=== PATIENT | female | born 1960 | race Caucasian/White ===

== ENCOUNTER 2023-03-22 11:39 | Inpatient (IN) ==
[2023-03-22] MEDS ORDERED: cefTRIAXone SODIUM 2,000 MG/70 ML BAG IV STA (12:18)
--- NOTE | 2023-03-22 12:23 | Emergency Department Note ---
Impression & Plan Sepsis, Leukopenia, Acute hyponatremia, Transaminitis, Acute Lyme disease ED Provider Note NAME: TAYLOR MARRUFO AGE: 62 SEX: F : 1960 ARRIVES VIA: Walk-In INFORMANT: Patient, ED PROVIDER(S): Stanley Min DO CHIEF COMPLAINT: fever HPI: Patient is a 62-year-old female who presents ER with a past medical history of hypertension, hyperlipidemia, UTI for right del cid wound. This occurred at the end of February at low-dose. She was seen by her PCP and placed on Keflex. She was seen by Dr. Veloz several days ago and placed on Keflex and Bactrim. She has had persistent fevers of 10 2-1 04 with this. She was seen and evaluated and referred in today for further admission and work-up. She notes the redness has been improving slightly. She still having persistent fevers. She denies any headache or change in vision. No chest pain or shortness of breath. No dysuria urgency or frequency. Admits to nausea and some intermittent vomiting. No other exacerbating or remitting factors. PAST MEDICAL HISTORY:See Below PAST SURGICAL HISTORY:See Below FAMILY HISTORY:See Below SOCIAL HISTORY:See Below HOME MEDICATIONS:See Below ALLERGIES:See Below VITALS:See Below PHYSICAL EXAMINATION: GENERAL: Sitting up in bed, alert, well appearing, well nourished, no distress, non-toxic EYE EXAM: normal conjunctiva. PERRL and EOM's grossly intact. OROPHARYNX: no exudate, no erythema, lips, buccal mucosa, and tongue normal and mucous membranes are moist NECK: supple, no nuchal rigidity, no adenopathy, non-tender LUNGS: Clear to auscultation. Normal chest wall mechanics HEART: no murmurs, S1 normal and S2 normal ABDOMEN: abdomen soft, non-tender, normo-active bowel sounds, no masses, no rebound or guarding. BACK: Back is symmetrical on inspection and there is no deformity, no midline tenderness, no CVA tenderness. SKIN: Wound on right del cid which is closed without any drainage. Small amount of fluctuance. Erythema on the inferior aspect of the wound tracking down to the heel. Skin is slightly warm. UPPER EXTREMITIES: upper extremities are grossly normal. LOWER EXTREMITIES: No pitting edema. NEURO EXAM: Normal sensorium, cranial nerves II-XII grossly intact, normal speech, no gross weakness of arms, no gross weakness of legs. MEDICAL DECISION MAKING: Patient is a 62-year-old female who presents the ER for above-stated complaint. IV was established blood work was obtained. External records were reviewed. Labs show mild leukopenia 3.1. There is mild hyponatremia at 125 with alfred mitten mild transaminitis. Troponin was negative. Pro-Elieser was normal. UA was clean. The setting of a fairly benign wound on the right del cid I did favor this most consistent with either Lyme or anaplasmosis. This testing was obtained and IgM was positive. Patient was covered with Rocephin initially I did Tylenol and doxycycline as well in case of anaplasmosis. X-ray was unremarkable and ultrasound did show a collection of fluid which I favor is likely hematoma. she was discussed with the hospitalist admitted for further work-up. Case was discussed with Dr. Vásquez for further evaluation management treatment. Triage Nursing notes reviewed. Limited review of prior medical records performed Vital Signs: reviewed and remarkable for febrile and tachycardic Differential diagnosis: Differential diagnosis includes etiologies such as sepsis, UTI, pneumonia, metabolic, electrolyte abnormalities, cardiac sources, intracerebral event, toxicologic, neurological, as well as others were entertained. ER treatment provided: See below Diagnostics interpreted by me include EKG and cardiac monitoring as listed below: -Cardiac Monitoring: An order was placed for continuous cardiac monitoring. The monitor shows a rate of 90 with sinus rhythm. -ECG: none -Laboratory studies:Interpreted by me as stated above in MDM and shown below. Imaging studies: Xrays: As interpreted by me: X-ray of the del cid 2 view shows no acute fracture CTs show: none Ultrasound shows a collection of fluid question hematoma versus abscess Consultation(s): As described in MDM Procedures:none Critical Care: None Past Med/Surg History Medical History Borderline diabetes Borderline high blood pressure Chronic UTI History of anesthesia reaction MOTHER WITH TRIPLE BYASS SURGERY TOOK A DAY AND A HALF TO GET HER AWAKE History of kidney infection X3 IN THE PAST YR - MOST RECENT - FEBRUARY OR MAR 2021 Hyperlipidemia Hypertension Weight gain 20 POUNDS OVER LAST 3 YRS Surgical History History of cataract extraction BOTH History of dilation and curettage History of foot surgery X2 (1 RIGHT, 1 LEFT) History of hysterectomy History of wisdom tooth extraction Family History Mother Diabetes Father Diabetes Sister Diabetes Other COPD (chronic obstructive pulmonary disease) Cancer Deep vein thrombosis Heart disease Pulmonary embolism Stroke Social History Smoking Status: Current every day smoker Tobacco Type: E-cigarettes / Vaping Cigarettes Per Day: VAPE EVERY DAY - ADVISED NPO; Second Hand Exposure: Yes; Do You Dip or Chew Tobacco: No; Hx Alcohol Use: Yes Alcohol type: wine Hx Substance Use: No Preferred Language: Citizen Of [place] Communication Ability: Effective Competitive Shopper Required: No Beliefs That Will Affect Care: None marital status: Current Living Situation: Alone current occupational status: employed current occupation: [employer] How many Children do You have: 0 Feels Safe at Home: Yes Childhood Exposure to Second-Hand Smoke: Yes Diet: regular caffeine: Yes Dental Care, Regularly: Yes Physical Activity Frequency: Daily Seatbelt Use: always Sunscreen Use: No Assistive Devices: Glasses Allergies Allergies Allergy/AdvReac Type Severity Reaction Status Date / Time Penicillins Allergy Intermediate HIVES AND Verified 03/22/23 14:52 SWELLING bupropion [From Zyban] AdvReac Severe MUSCULAR Verified 03/22/23 14:52 - SEE NOTES Home Meds Home Medications Medication Instructions Recorded Confirmed apple cider vinegar 600 mg capsule 600 mg PO DAILY 08/19/21 03/22/23 cyclosporine 0.05 % eye drops 1 drp ophthalmic (eye) BID 08/19/21 03/22/23 (Restasis MultiDose) flaxseed oil 1,000 mg capsule 1,000 mg PO DAILY 08/19/21 03/22/23 lactobacillus combination no.4 3 3,000 mmu cells PO DAILY 08/19/21 03/22/23 billion cell capsule (Probiotic) ascorbic acid (vitamin C) 500 mg 500 mg PO DAILY 09/04/21 03/22/23 tablet (Vitamin C) cholecalciferol (vitamin D3) 10 10 mcg PO DAILY 09/04/21 03/22/23 mcg (400 unit) capsule (Vitamin D3) cyanocobalamin (vitamin B-12) 1,000 mcg PO DAILY ##0 09/04/21 03/22/23 1,000 mcg tablet (Vitamin B-12) ibuprofen 200 mg tablet 600 mg PO DIRECTED PRN Pain 03/17/23 03/22/23 losartan 25 mg tablet (Cozaar) 25 mg PO HS 03/17/23 03/22/23 Previous Rx's Medication Instructions Recorded lorazepam 0.5 mg tablet (Ativan) 0.5 mg PO DAILY PRN anxiety, 03/01/23 trouble sleeping #14 tabs ondansetron HCl 4 mg tablet 4 mg PO Q8H PRN nausea and 03/18/23 vomiting #20 tabs Results & Data (ED) Vital Signs Vital Signs - 24 hr 03/22/23 12:04 03/22/23 13:15 03/22/23 13:00 Temperature 38.3 C H Temperature Source Oral Pulse Rate 93 H 83 Pulse Rate [Apical] Respiratory Rate 18 Respiratory Effort / Characteristics Non-Labored Spontaneous Respiratory Depth Normal Respiratory Pattern Regular Blood Pressure 115/67 Blood Pressure [Right Arm] Blood Pressure Mean 83 Blood Pressure Mean [Right Arm] Blood Pressure Position Sitting Pulse Oximetry 95 Oxygen Delivery Method Room Air Room Air Sepsis Recent Fever Within 48 Hours Yes Sepsis New/Unexplained Change in Mental Status No Sepsis Action Taken by Nursing No Action Required 03/22/23 17:28 Temperature Temperature Source Pulse Rate Pulse Rate [Apical] 81 Respiratory Rate 18 Respiratory Effort / Characteristics Respiratory Depth Respiratory Pattern Blood Pressure Blood Pressure [Right Arm] 100/60 Blood Pressure Mean Blood Pressure Mean [Right Arm] 73 Blood Pressure Position Pulse Oximetry 92 Oxygen Delivery Method Room Air Sepsis Recent Fever Within 48 Hours Sepsis New/Unexplained Change in Mental Status Sepsis Action Taken by Nursing Laboratory Data 03/22/23 12:27 03/22/23 12:27 Lab Results 03/22/23 03/22/23 03/22/23 Range/Units 12:23 12:27 12:27 WBC 3.18 L (4.8-10.8) K/ul RBC 4.26 (4.20-5.40) M/uL Hgb 13.5 (12.0-16.0) g/dl Hct 37.7 (37.0-47.0) % MCV 88.5 (80.0-100.0) fL MCH 31.7 (25.0-34.0) pg MCHC 35.8 (32.0-36.0) g/dL RDW Std Deviation 41.5 (36.4-46.3) fL RDW Coeff of Kristyn 12.8 (11.5-14.5) % Plt Count 167 (130-400) K/uL MPV 8.9 L (9.4-12.4) fL Immature Gran % (Auto) 4.4 % Neut % (Auto) 69.9 % Lymph % (Auto) 17.9 % Calhoun % (Auto) 4.7 % Eos % (Auto) 2.8 % Baso % (Auto) 0.3 % Neut # (Auto) 2.22 (1.40-6.50) K/uL Lymph # (Auto) 0.57 L (1.2-3.4) K/uL Calhoun # (Auto) 0.15 (0.11-0.59) K/uL Eos # (Auto) 0.09 (0-0.50) K/uL Baso # (Auto) 0.01 (0-0.2) K/uL Immature Gran # (Auto) 0.14 (0.01-0.20) K/uL Echinocytes 1+ PT (9.0-12.0) Seconds INR (0.9-1.1) APTT (21.0-31.0) Seconds PTT Ratio Sodium (136-145) mmol/L Potassium (3.5-5.1) mmol/L Chloride (98-107) mmol/L Carbon Dioxide (21-32) mmol/L Anion Gap (3-11) BUN (6-23) mg/dl Creatinine (0.6-1.2) mg/dl Est Cr Clr Drug Dosing ml/min Est GFR ( Amer) ml/min Est GFR (Non-Af Amer) ml/min BUN/Creatinine Ratio (10-20) Glucose (70-99(Fasting)) mg/dl Lactate 0.8 (0.4-2.0) mmol/L Calcium (8.6-10.3) mg/dl Magnesium (1.7-2.4) mg/dl Total Bilirubin (0.2-1.0) mg/dl AST (13-39) U/L ALT (7-52) U/L Alkaline Phosphatase (34-104) U/L Troponin I High Sens (0-14) pg/ml Total Protein (6.0-8.3) gm/dl Albumin (3.4-5.0) gm/dl Globulin (2.5-4.0) gm/dl Albumin/Globulin Ratio (0.9-2) Procalcitonin (0-0.5) ng/ml Urine Color Yellow Urine Appearance Clear (Clear) Urine pH 6.5 (4.5-7.5) Ur Specific Ambia 1.008 (1.000-1.030) Urine Protein Negative (Negative) Urine Glucose (UA) Negative (Negative) Urine Ketones Negative (Negative) Urine Blood Negative (Negative) Urine Nitrite Negative (Negative) Urine Bilirubin Negative (Negative) Urine Urobilinogen Negative (Negative) Ur Leukocyte Esterase Negative (Negative) Anaplasma Smear See Comment Lyme Disease IgG Ab (Negative) Lyme Disease IgM Ab (Negative) 03/22/23 03/22/23 03/22/23 Range/Units 12:27 12:27 12:27 WBC (4.8-10.8) K/ul RBC (4.20-5.40) M/uL Hgb (12.0-16.0) g/dl Hct (37.0-47.0) % MCV (80.0-100.0) fL MCH (25.0-34.0) pg MCHC (32.0-36.0) g/dL RDW Std Deviation (36.4-46.3) fL RDW Coeff of Kristyn (11.5-14.5) % Plt Count (130-400) K/uL MPV (9.4-12.4) fL Immature Gran % (Auto) % Neut % (Auto) % Lymph % (Auto) % Calhoun % (Auto) % Eos % (Auto) % Baso % (Auto) % Neut # (Auto) (1.40-6.50) K/uL Lymph # (Auto) (1.2-3.4) K/uL Calhoun # (Auto) (0.11-0.59) K/uL Eos # (Auto) (0-0.50) K/uL Baso # (Auto) (0-0.2) K/uL Immature Gran # (Auto) (0.01-0.20) K/uL Echinocytes PT 11.8 (9.0-12.0) Seconds INR 1.1 (0.9-1.1) APTT 33.9 H (21.0-31.0) Seconds PTT Ratio 1.2 Sodium 125 L (136-145) mmol/L Potassium 3.7 (3.5-5.1) mmol/L Chloride 95 L (98-107) mmol/L Carbon Dioxide 21 (21-32) mmol/L Anion Gap 9 (3-11) BUN 13 (6-23) mg/dl Creatinine 1.06 (0.6-1.2) mg/dl Est Cr Clr Drug Dosing 42.7 ml/min Est GFR ( Amer) 64.7 ml/min Est GFR (Non-Af Amer) 55.8 ml/min BUN/Creatinine Ratio 12.3 (10-20) Glucose 93 (70-99(Fasting)) mg/dl Lactate (0.4-2.0) mmol/L Calcium 8.4 L (8.6-10.3) mg/dl Magnesium 2.0 (1.7-2.4) mg/dl Total Bilirubin 0.4 (0.2-1.0) mg/dl AST 85 H (13-39) U/L ALT 72 H (7-52) U/L Alkaline Phosphatase 68 (34-104) U/L Troponin I High Sens 3.7 (0-14) pg/ml Total Protein 7.2 (6.0-8.3) gm/dl Albumin 4.2 (3.4-5.0) gm/dl Globulin 3.0 (2.5-4.0) gm/dl Albumin/Globulin Ratio 1.4 (0.9-2) Procalcitonin 0.23 (0-0.5) ng/ml Urine Color Urine Appearance (Clear) Urine pH (4.5-7.5) Ur Specific Ambia (1.000-1.030) Urine Protein (Negative) Urine Glucose (UA) (Negative) Urine Ketones (Negative) Urine Blood (Negative) Urine Nitrite (Negative) Urine Bilirubin (Negative) Urine Urobilinogen (Negative) Ur Leukocyte Esterase (Negative) Anaplasma Smear Lyme Disease IgG Ab (Negative) Lyme Disease IgM Ab (Negative) 03/22/23 Range/Units 12:27 WBC (4.8-10.8) K/ul RBC (4.20-5.40) M/uL Hgb (12.0-16.0) g/dl Hct (37.0-47.0) % MCV (80.0-100.0) fL MCH (25.0-34.0) pg MCHC (32.0-36.0) g/dL RDW Std Deviation (36.4-46.3) fL RDW Coeff of Kristyn (11.5-14.5) % Plt Count (130-400) K/uL MPV (9.4-12.4) fL Immature Gran % (Auto) % Neut % (Auto) % Lymph % (Auto) % Calhoun % (Auto) % Eos % (Auto) % Baso % (Auto) % Neut # (Auto) (1.40-6.50) K/uL Lymph # (Auto) (1.2-3.4) K/uL Calhoun # (Auto) (0.11-0.59) K/uL Eos # (Auto) (0-0.50) K/uL Baso # (Auto) (0-0.2) K/uL Immature Gran # (Auto) (0.01-0.20) K/uL Echinocytes PT (9.0-12.0) Seconds INR (0.9-1.1) APTT (21.0-31.0) Seconds PTT Ratio Sodium (136-145) mmol/L Potassium (3.5-5.1) mmol/L Chloride (98-107) mmol/L Carbon Dioxide (21-32) mmol/L Anion Gap (3-11) BUN (6-23) mg/dl Creatinine (0.6-1.2) mg/dl Est Cr Clr Drug Dosing ml/min Est GFR ( Amer) ml/min Est GFR (Non-Af Amer) ml/min BUN/Creatinine Ratio (10-20) Glucose (70-99(Fasting)) mg/dl Lactate (0.4-2.0) mmol/L Calcium (8.6-10.3) mg/dl Magnesium (1.7-2.4) mg/dl Total Bilirubin (0.2-1.0) mg/dl AST (13-39) U/L ALT (7-52) U/L Alkaline Phosphatase (34-104) U/L Troponin I High Sens (0-14) pg/ml Total Protein (6.0-8.3) gm/dl Albumin (3.4-5.0) gm/dl Globulin (2.5-4.0) gm/dl Albumin/Globulin Ratio (0.9-2) Procalcitonin (0-0.5) ng/ml Urine Color Urine Appearance (Clear) Urine pH (4.5-7.5) Ur Specific Ambia (1.000-1.030) Urine Protein (Negative) Urine Glucose (UA) (Negative) Urine Ketones (Negative) Urine Blood (Negative) Urine Nitrite (Negative) Urine Bilirubin (Negative) Urine Urobilinogen (Negative) Ur Leukocyte Esterase (Negative) Anaplasma Smear Lyme Disease IgG Ab Negative (Negative) Lyme Disease IgM Ab Positive A (Negative) Administered Medications Discontinued Medications Acetaminophen (Acetaminophen 325 Mg Tab) 650 mg PO NOW STA Stop: 03/22/23 12:10 Last Admin: 03/22/23 13:06 Dose: Not Given Documented By: JOSHUA Ceftriaxone Sodium (Rocephin) 2,000 mg in 70 mls @ 140 mls/hr IV NOW STA Stop: 03/22/23 12:47 Last Infusion: 03/22/23 13:44 Dose: 0 mls/hr Documented By: Admin: 03/22/23 13:01 Dose: 140 mls/hr Documented By: JOSHUA Vancomycin HCl 1,250 mg/ (Sodium Chloride) 525 mls @ 200 mls/hr IV NOW ONE Stop: 03/22/23 15:01 Last Admin: 03/22/23 13:47 Dose: 200 mls/hr Documented By: OUMOU Sodium Chloride (Nss 1000ml) 1,000 mls @ 999 mls/hr IV .Q1H1M ONE Stop: 03/22/23 14:46 Last Admin: 03/22/23 14:26 Dose: 999 mls/hr Documented By: OUMOU Doxycycline Hyclate 100 mg/ (Dextrose) 110 mls @ 50 mls/hr IV NOW STA Stop: 03/22/23 15:57 Last Admin: 03/22/23 14:26 Dose: 50 mls/hr Documented By: OUMOU Imaging Data Radiologist's Impression: Tibia/Fibula X-Ray 03/22/23 12:18 XR tibia fibula RT 2V CLINICAL HISTORY: Right lower leg pain. Assess for osteomyelitis. COMPARISON STUDY: Right foot 03/15/2023. FINDINGS: No fracture or dislocation within the right tibia or fibula. Plantar and posterior calcaneal spurs are noted. No bony destruction to suggest an osteomyelitis. Mild soft tissue swelling within the mid right lower leg. IMPRESSION: No evidence for osteomyelitis within the right lower leg. ACT 112: Negative or not required by law. Electronically signed by: Jaiden Bonilla M.D. 03/22/2023 1:18 PM Vascular Ultrasound 03/22/23 12:18 US extremity non-vascular ltd HISTORY: 62 years-old Female ? abscess diffuse soft tissue swelling of the right lower leg with possible abscess COMPARISON: Tibia and fibula radiographs of same day TECHNIQUE: Multiple real-time sonographic images of the right lower extremity soft tissues were obtained assessing grayscale appearance and color flow FINDINGS: The linear clinical concern in the right calf there is a complex wider than tall mixed echogenicity ovoid collection measuring approximately 3.7 x 0.7 x 2.6 cm with peripheral flow. Increased echogenicity of the subcutaneous tissues with subcutaneous edema. IMPRESSION: Complex 3.7 cm fluid collection of the right calf is suggestive of a hematoma versus abscess. ACT 112: Negative or not required by law. The above report was generated using voice recognition software. It may contain grammatical, syntax or spelling errors. Electronically signed by: Edvin Maradiaga M.D. 03/22/2023 3:56 PM Liver Ultrasound 03/22/23 16:13 ABDOMINAL ULTRASOUND, RIGHT UPPER QUADRANT HISTORY: elevated LFTs. COMPARISON: None. FINDINGS: Pancreas: Fatty Liver: The liver is echogenic consistent with fatty change. 14 cm in length. No hepatic masses. Gallbladder: No gallbladder wall thickening. No gallstones. CBD: 3 mm. Right kidney: No hydronephrosis. IMPRESSION: 1. Hepatic steatosis. 2. Normal gallbladder. No gallstones. ACT 112: Negative or not required by law. Electronically signed by: Jaiden Bonilla M.D. 03/22/2023 5:38 PM Discharge Plan Visit Data Chief Complaint: Leg Injury/Pain Stated Complaint: INFECTED RT LEG ED Provider: Stanley Min Discharge Problem: Sepsis, Leukopenia, Acute hyponatremia, Transaminitis, Acute Lyme disease Forms Stand Alone Forms: My [facility] Prescriptions Prescriptions: No Action Restasis MultiDose 0.05 % drops 1 drp ophthalmic (eye) BID flaxseed oil 1,000 mg capsule 1,000 mg PO DAILY Patient Comments: AT LEAST 6 X PER DAY Rx Instructions: administer with a meal Probiotic 3 billion cell capsule 3,000 mmu cells PO DAILY Rx Instructions: administer with a meal apple cider vinegar 600 mg capsule 600 mg PO DAILY Patient Comments: HIT OR MISS, AT LEAST 3 X PER WEEK lorazepam [Ativan] 0.5 mg tablet 0.5 mg PO DAILY PRN (Reason: anxiety, trouble sleeping) Qty: 14 0RF cyanocobalamin (vitamin B-12) [Vitamin B-12] 1,000 mcg Tablet 1,000 mcg PO DAILY Qty: 0 ascorbic acid (vitamin C) [Vitamin C] 500 mg Tablet 500 mg PO DAILY cholecalciferol (vitamin D3) [Vitamin D3] 10 mcg (400 unit) Capsule 10 mcg PO DAILY ibuprofen 200 mg Tablet 600 mg PO DIRECTED PRN (Reason: Pain) losartan [Cozaar] 25 mg tablet 25 mg PO HS ondansetron HCl 4 mg tablet 4 mg PO Q8H PRN (Reason: nausea and vomiting) Qty: 20 0RF Referrals Referrals: Tanika Queen MD [Primary Care Provider] -
[2023-03-22] MEDS ORDERED: VANCOMYCIN HCL 1,250 MG in SODIUM CHLORIDE 0.9% 500 ML IV ONE (12:24)
[2023-03-22] MEDS ORDERED: VANCOMYCIN CONSULT ACTIVE PRN (12:24)
[2023-03-22 12:53] LABS: Appearance Urine Clear (Clear); Bilirubin Urine Negative (Negative); Blood Urine Negative (Negative); Color Urine Yellow; Glucose Urine UA Negative (Negative); Ketones Urine Negative (Negative); Leukocyte Esterase Urine Negative (Negative); Nitrite Urine Negative (Negative); Protein Urine Negative (Negative); Specific Gravity Urine 1.008 (1.000-1.030); Urobilinogen Urine Negative (Negative); pH Urine 6.5 (4.5-7.5)
[2023-03-22 12:54] LABS: Basophils # (auto) 0.01 K/uL (0-0.2); Basophils % (auto) 0.3 %; Eosinophils # (auto) 0.09 K/uL (0-0.50); Eosinophils % (auto) 2.8 %; Hematocrit (blood only) 37.7 % (37.0-47.0); Hemoglobin 13.5 g/dl (12.0-16.0); Immature Granulocytes # (auto) 0.14 K/uL (0.01-0.20); Immature Granulocytes % (auto) 4.4 %; Lymphocytes # (auto) 0.57 K/uL (1.2-3.4); Lymphocytes % (auto) 17.9 %; Mean Corpuscular Hemoglobin 31.7 pg (25.0-34.0); Mean Corpuscular Hgb Conc 35.8 g/dL (32.0-36.0); Mean Corpuscular Volume 88.5 fL (80.0-100.0); Mean Platelet Volume 8.9 fL (9.4-12.4); Monocytes # (auto) 0.15 K/uL (0.11-0.59); Monocytes % (auto) 4.7 %; Neutrophils # (auto) 2.22 K/uL (1.40-6.50); Neutrophils % (auto) 69.9 %; Platelet Count 167 K/uL (130-400); RDW Coefficient of Variation 12.8 % (11.5-14.5); RDW Standard Deviation 41.5 fL (36.4-46.3); Red Blood Count 4.26 M/uL (4.20-5.40); White Blood Count 3.18 K/ul (4.8-10.8)
[2023-03-22] MEDS: ACETAMINOPHEN 325 MG TAB PO STA ×2 (13:01→13:06)
[2023-03-22 13:04] LABS: INR 1.1 (0.9-1.1); Partial Thromboplastin Ratio 1.2; Partial Thromboplastin Time 33.9 Seconds (21.0-31.0); Prothrombin Time 11.8 Seconds (9.0-12.0)
[2023-03-22 13:11] LABS: Albumin Globulin Ratio 1.4 (0.9-2); Albumin Level 4.2 gm/dl (3.4-5.0); BUN Creatinine Ratio 12.3 (10-20); Bilirubin,Total 0.4 mg/dl (0.2-1.0); Calcium 8.4 mg/dl (8.6-10.3); Creatinine Clr Calc Pharmacy 42.7 ml/min; Est GFR (African American) 64.7 ml/min; Est GFR (Non-African American) 55.8 ml/min; Potassium 3.7 mmol/L (3.5-5.1); Total Protein 7.2 gm/dl (6.0-8.3)
[2023-03-22 13:17] LABS: Troponin I High Sensitivity 3.7 pg/ml (0-14)
--- NOTE | 2023-03-22 13:19 | XRay Report ---
XR tibia fibula RT 2V CLINICAL HISTORY: Right lower leg pain. Assess for osteomyelitis. COMPARISON STUDY: Right foot 03/15/2023. FINDINGS: No fracture or dislocation within the right tibia or fibula. Plantar and posterior calcanea l spurs are noted. No bony destruction to suggest an osteomyelitis. Mild soft tissue swelling within the mid right lower leg. IMPRESSION: No evidence for osteomyelitis within the right lower leg. ACT 112: Negative or not required by law. Electronically signed by: Jaiden Bonilla M.D. 03/22/2023 1:18 PM
[2023-03-22] MEDS ORDERED: SODIUM CHLORIDE 0.9% 1000ML 1,000 ML IV ONE (13:46)
[2023-03-22] MEDS ORDERED: DOXYCYCLINE HYCLATE 100 MG in DEXTROSE 5% 100 ML IV STA (13:46)
[2023-03-22 14:51] LABS: Echinocytes 1+
--- NOTE | 2023-03-22 15:47 | History & Physical Report ---
Date of Service March 22, 2023 Assessment & Plan (1) Sepsis: Plan: With fevers x1 week, tachycardia, leukopenia, and possible source being abscess in the right ankle Question if has become bacteremic and with seeding to the neck/discitis/OM given 1 week of neck pain as well? Could also have OM of the ankle Failed outpatient treatment with Keflex as well as Bactrim although if has abscess as potentially seen on ultrasound, may need drainage for source control Also with elevated transaminases which could be from infection or side effect of antibiotics, but could also be associated with anaplasmosis -Admit to medical floor with telemetry -Continue broad-spectrum antibiotics started in the ER with IV ceftriaxone, vancomycin, and doxycycline which would also cover for anaplasmosis -Follow-up on anaplasmosis DNA PCR when available, Lyme titer -Follow blood cultures -Check MRI of the right ankle and cervical spine to look for discitis/osteomyelitis -Consult general surgery for possible drainage of abscess in the ankle -Tylenol as needed for fevers -Follow CBC, CMP in the morning, check CRP and ESR now as well as CK given elevated transaminases (2) Leg abscess: Plan: As noted above (3) Cellulitis: Plan: Improving but with development of possible abscess versus osteomyelitis as noted above Continue antibiotics (4) Elevated transaminase level: Plan: As above, could be from acute infection, sepsis, side effect of antibiotics. Could be mild rhabdomyolysis? Anaplasmosis? No abdominal pain, no obstructive pattern Check liver ultrasound Follow LFTs Check CK Follow-up anaplasmosis DNA PCR and continue on doxycycline (5) Leukopenia: Plan: Could be consistent with tickborne illness versus sepsis Follow CBC (6) Neck pain: Plan: Checking MRI cervical spine as above to rule out discitis or osteomyelitis of the neck given persistent fevers and neck pain No rigidity to suggest meningitis (7) Hypertension: Plan: Blood pressures are normal Continue home losartan Plan DVT prophylaxis-SCD to the left leg only for now, hold chemical prophylaxis given possible surgical procedure Disposition-admit to medical/telemetry unit Full code History of Present Illness Chief Complaint: Fever Primary Care Provider: Tanika Queen MD This patient is a 62-year-old female with a history of HTN, hyperlipidemia, metabolic syndrome who presents with persistent fevers x1 week. She had a contusion to her right leg on 03/06 and was seen by primary care physician on 03/09 and started on Keflex for cellulitis around the wound. The cellulitis worsened and was seen by nurse practitioner and switched to Bactrim which she did not tolerate due to nausea/vomiting but continued to take along with oral Zofran. She came to the ER on 03/18 and was recommended to be admitted for IV antibiotics but she decided to go home and continued on the Bactrim. She reports ongoing fevers/chills and nausea with fevers of 102-104 for the last week. She continues to have pain at the site of the wound and swelling and the redness has slightly improved. She also complains of bilateral neck pain and a sensation that her eyes are bulging out of her head for the last week since being on Bactrim. Her PCP recommended she come to the ER again yesterday for concerns f or possible underlying osteomyelitis. A culture from 03/17 only shows corynebacterium. In the ER,She was febrile and tachycardic. She was found to have a mild leukopenia with lymphopenia, hyponatremia with a sodium of 125 down from 132 at previous ER visit, a normal lactate, and elevated AST and ALT at 85 and 72 which is up from previous. Her platelets were within normal limits but were lower t aadme previous at 167. A procalcitonin was normal. UA was normal. Anaplasmosis peripheral smear was negative. She was given a dose of IV ceftriaxone, IV doxycycline, and IV vancomycin. Blood cultures were drawn prior to that. She does have a complex 3.7 cm fluid collection of the right calf suggestive of a hematoma versus abscess seen on ultrasound. X-ray of the right tibia/fibula was negative for evidence of osteomyelitis. Allergies Allergy/AdvReac Type Severity Reaction Status Date / Time Penicillins Allergy Intermediate HIVES AND Verified 03/22/23 14:52 SWELLING bupropion [From Zyban] AdvReac Severe MUSCULAR Verified 03/22/23 14:52 - SEE NOTES Home Medications Medication Instructions Recorded Confirmed Type apple cider vinegar 600 mg capsule 600 mg PO DAILY 08/19/21 03/22/23 History cyclosporine 0.05 % eye drops 1 drp ophthalmic (eye) BID 08/19/21 03/22/23 History (Restasis MultiDose) flaxseed oil 1,000 mg capsule 1,000 mg PO DAILY 08/19/21 03/22/23 History lactobacillus combination no.4 3 3,000 mmu cells PO DAILY 08/19/21 03/22/23 History billion cell capsule (Probiotic) ascorbic acid (vitamin C) 500 mg 500 mg PO DAILY 09/04/21 03/22/23 History tablet (Vitamin C) cholecalciferol (vitamin D3) 10 10 mcg PO DAILY 09/04/21 03/22/23 History mcg (400 unit) capsule (Vitamin D3) cyanocobalamin (vitamin B-12) 1,000 mcg PO DAILY ##0 09/04/21 03/22/23 History 1,000 mcg tablet (Vitamin B-12) lorazepam 0.5 mg tablet (Ativan) 0.5 mg PO DAILY PRN anxiety, 03/01/23 03/22/23 Rx trouble sleeping #14 tabs ibuprofen 200 mg tablet 600 mg PO DIRECTED PRN Pain 03/17/23 03/22/23 History losartan 25 mg tablet (Cozaar) 25 mg PO HS 03/17/23 03/22/23 History ondansetron HCl 4 mg tablet 4 mg PO Q8H PRN nausea and 03/18/23 03/22/23 Rx vomiting #20 tabs Past Med/Surg History Medical History Borderline diabetes Borderline high blood pressure Chronic UTI History of anesthesia reaction MOTHER WITH TRIPLE BYASS SURGERY TOOK A DAY AND A HALF TO GET HER AWAKE History of kidney infection X3 IN THE PAST YR - MOST RECENT - FEBRUARY OR MAR 2021 Hyperlipidemia Hypertension Weight gain 20 POUNDS OVER LAST 3 YRS Surgical History History of cataract extraction BOTH History of dilation and curettage History of foot surgery X2 (1 RIGHT, 1 LEFT) History of hysterectomy History of wisdom tooth extraction Family History Mother Diabetes Father Diabetes Sister Diabetes Other COPD (chronic obstructive pulmonary disease) Cancer Deep vein thrombosis Heart disease Pulmonary embolism Stroke Social History Smoking Status: Current every day smoker Tobacco Type: E-cigarettes / Vaping Cigarettes Per Day: VAPE EVERY DAY - ADVISED NPO; Second Hand Exposure: Yes; Do You Dip or Chew Tobacco: No; Hx Alcohol Use: Yes Alcohol type: wine Hx Substance Use: No Preferred Language: Azeri Communication Ability: Effective 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 Beliefs That Will Affect Care: None marital status: Current Living Situation: Alone current occupational status: employed current occupation: [employer] How many Children do You have: 0 Feels Safe at Home: Yes Childhood Exposure to Second-Hand Smoke: Yes Diet: regular caffeine: Yes Dental Care, Regularly: Yes Physical Activity Frequency: Daily Seatbelt Use: always Sunscreen Use: No Assistive Devices: Glasses Review of Systems Review of Systems: All systems reviewed & are unremarkable except as noted in HPI & below Physical Exam Constitutional: WD/WN, vitals as above Eyes: PERRL, conjunctivae normal, anicteric sclerae ENMT: external ear and nose normal, oropharynx normal Neck: trachea midline, no thyromegaly No tenderness to palpation along cervical spinous processes or paraspinous muscles, full range of motion of the neck Respiratory: normal respiratory effort, lungs clear to auscultation Cardiovascular: RRR, no murmur, no edema Chest (Breasts): Chest: normal inspection of chest Gastrointestinal (Abdomen): normal bowel sounds, soft, nontender, no hepatosplenomegaly Musculoskeletal: Extremities: no cyanosis and no clubbing Skin: Right ankle anterior and superior to the lateral malleolus with fluctuant region with mild erythema, overlying scab, not significantly tender to the touch, no spreading erythema approximately, no active drainage Neurologic: moves all extremities and awake; no focal motor deficits Psychiatric: A+Ox3, euthymic affect Lymphatic: no lymphedema Results & Data Results & Data Vital Signs (Past 12 Hours) Vital Signs Temp Pulse Resp BP Pulse Ox O2 Del Method 03/22/23 13:00 Room Air 03/22/23 13:15 83 03/22/23 12:04 38.3 C H 93 H 18 115/67 95 Room Air Laboratory Results CBC, CMP, procalcitonin , urinalysis reviewed Diagnostic Findings Tibia/Fibula X-Ray 03/22/23 12:18 XR tibia fibula RT 2V CLINICAL HISTORY: Right lower leg pain. Assess for osteomyelitis. COMPARISON STUDY: Right foot 03/15/2023. FINDINGS: No fracture or dislocation within the right tibia or fibula. Plantar and posterior calcaneal spurs are noted. No bony destruction to suggest an osteomyelitis. Mild soft tissue swelling within the mid right lower leg. IMPRESSION: No evidence for osteomyelitis within the right lower leg. ACT 112: Negative or not required by law. Electronically signed by: Jaiden Bonilla M.D. 03/22/2023 1:18 PM Vascular Ultrasound 03/22/23 12:18 US extremity non-vascular ltd HISTORY: 62 years-old Female ? abscess diffuse soft tissue swelling of the right lower leg with possible abscess COMPARISON: Tibia and fibula radiographs of same day TECHNIQUE: Multiple real-time sonographic images of the right lower extremity soft tissues were obtained assessing grayscale appearance and color flow FINDINGS: The linear clinical concern in the right calf there is a complex wider than tall mixed echogenicity ovoid collection measuring approximately 3.7 x 0.7 x 2.6 cm with peripheral flow. Increased echogenicity of the subcutaneous tissues with subcutaneous edema. IMPRESSION: Complex 3.7 cm fluid collection of the right calf is suggestive of a hematoma versus abscess. ACT 112: Negative or not required by law. The above report was generated using voice recognition software. It may contain grammatical, syntax or spelling errors. Electronically signed by: Edvin Maradiaga M.D. 03/22/2023 3:56 PM ECG Additional Comments: ECG on 03/22/2023 at 1305 with normal sinus rhythm, rate 82, nonspecific T wave abnormality worse in anterior leads Code Status & VTE Plan Code Status Full code VTE Prophylaxis Plan VTE Prophylaxis will be ordered: Yes PG Care Time/CCT Total # of Minutes Spent Total Time Spent with Patient: Total time spent is greater than 50% in coordination of care (as documented) at patient's floor/unit and/or counseling patient: Coding Level of Care Code 18532 INT INP/OBS CARE 3/75MIN Diagnoses Sepsis A41.9 Leg abscess L02.419 Cellulitis L03.90 Elevated transaminase level R74.01 Leukopenia D72.819 Neck pain M54.2 Hypertension I10
--- NOTE | 2023-03-22 15:57 | Ultrasound Report ---
US extremity non-vascular ltd HISTORY: 62 years-old Female ? abscess diffuse soft tissue swelling of the right lower leg with poss ible abscess COMPARISON: Tibia and fibula radiographs of same day TECHNIQUE: Multiple real-time sonographic images of the right lower extremity soft tissues were obtai michael assessing grayscale appearance and color flow FINDINGS: The linear clinical concern in the right calf there is a complex wider than tall mixed echogenicity o void collection measuring approximately 3.7 x 0.7 x 2.6 cm with peripheral flow. Increased echogenici ty of the subcutaneous tissues with subcutaneous edema. IMPRESSION: Complex 3.7 cm fluid collection of the right calf is suggestive of a hematoma versus absc ess. ACT 112: Negative or not required by law. The above report was generated using voice recognition software. It may contain grammatical, syntax o r spelling errors. Electronically signed by: Edvin Maradiaga M.D. 03/22/2023 3:56 PM
--- NOTE | 2023-03-22 16:11 | Electrocardiogram Report ---
Test Reason : Blood Pressure : / mmHG Vent. Rate : 082 BPM Atrial Rate : 082 BPM P-R Int : 116 ms QRS Dur : 076 ms QT Int : 356 ms P-R-T Axes : 052 -05 033 degrees QTc Int : 415 ms Normal sinus rhythm Low voltage QRS Nonspecific T wave abnormality Abnormal ECG When compared with ECG of 14-SEP-2021 08:25, Questionable change in QRS axis Nonspecific T wave abnormality, worse in Anterior leads Confirmed by Lev Diallo ([id number]) on 03/22/2023 4:10:45 PM Referred By: REFERRED SELF Confirmed By:Lev Diallo
[2023-03-22 16:25] LABS: Lyme Ab IgG w/WB Rflx Negative (Negative)
[2023-03-22 16:33] LABS: Lyme Ab IgM w/WB Rflx Positive (Negative)
--- NOTE | 2023-03-22 17:40 | Ultrasound Report ---
ABDOMINAL ULTRASOUND, RIGHT UPPER QUADRANT HISTORY: elevated LFTs. COMPARISON: None. FINDINGS: Pancreas: Fatty Liver: The liver is echogenic consistent with fatty change. 14 cm in length. No hepatic masses. Gallbladder: No gallbladder wall thickening. No gallstones. CBD: 3 mm. Right kidney: No hydronephrosis. IMPRESSION: 1. Hepatic steatosis. 2. Normal gallbladder. No gallstones. ACT 112: Negative or not required by law. Electronically signed by: Jaiden Bonilla M.D. 03/22/2023 5:38 PM
--- NOTE | 2023-03-22 19:29 | Magnetic Resonance Report ---
CERVICAL SPINE MRI HISTORY: neck pain,fevers,assess for discitis/osteomyelitis TECHNIQUE: Multiplanar multisequence MRI of the cervical spine was performed without the use of contr ast. COMPARISON STUDY: None. FINDINGS: No fracture or subluxation within the cervical spine. Minimal disc space narrowing at C5-C6 . The remaining disc spaces are preserved. Mild disc desiccation seen throughout the cervical spine. There is a normal signal intensity within the visualized osseous structures. No endplate erosive [place] ges to suggest a discitis/osteomyelitis. No epidural or paraspinal masses identified. Prevertebral so ft tissues and the C1-C2 interval are intact. The cervical spinal cord is normal and course, caliber, and signal intensity. The posterior fossa is unremarkable. C2-C3: No significant central canal or neural foraminal narrowing. C3-C4: No significant central canal or neural foraminal narrowing. C4-C5: No significant central canal or neural foraminal narrowing. C5-C6: No significant central canal narrowing. There is mild right-sided neural foraminal narrowing d ue to the uncovertebral and facet hypertrophy. No significant left-sided neural foraminal narrowing. C6-C7: Small focal central/right paracentral disc protrusion measuring 3 mm. This results in partial effacement of the anterior thecal sac without cord deformity. This appears to abut the exiting right nerve roots at this level and results in mild right-sided neural foraminal narrowing and mild central canal narrowing. There is no significant left-sided neural foraminal narrowing. C7-T1: No significant central canal or neural foraminal narrowing. IMPRESSION: 1. No evidence for discitis/osteomyelitis within the cervical spine. 2. No fracture or subluxation. 3. A small central/right paracentral focal disc protrusion at C6-C7 which results in mild central can al narrowing and appears to abut the exiting right nerve roots at this level. ACT 112: Negative or not required by law. Electronically signed by: Jaiden Bonilla M.D. 03/22/2023 7:27 PM
[2023-03-22] MEDS ORDERED: ACETAMINOPHEN 325 MG TAB PO PRN (19:54)
[2023-03-22] MEDS: SODIUM CHLORIDE 0.9% 1000ML 1,000 ML IV SCH (19:54)
[2023-03-22] MEDS ORDERED: LORazepam 0.5 MG TAB PO PRN (19:54)
[2023-03-22] MEDS ORDERED: ONDANSETRON INJ 2 MG/ML 2 ML VIAL IV PRN (19:54)
[2023-03-22] MEDS ORDERED: ARTIFICIAL TEARS OP PRN (20:23)
--- NOTE | 2023-03-22 20:25 | Pharmacy Report ---
Pharmacy PK ABX Note - Date of Service March 22, 2023 - Assessment and Plan Assessment 62 year old F receiving vancomycin/Rocephin for treatment of . Pertinent microbiologic data includes: blood culture growing currently pending. Patient had a leg culture from 03/17 that grew corynebacterium Day # 08/14 of antimicrobial therapy. Plan Vancomycin * Loading dose: 1250 mg IV x 1 * Maintenance dose: 750 mg IV every 12 hours * Regimen is predicted to achieve target AUC/CANDIDO of 400-600 mg/L.hr * Trough to be ordered if continued > 48 hours Pharmacy will continue to follow and will adjust dose/frequency as necessary. Thank you. Pharmacy has transitioned to AUC monitoring for vancomycin. AUC/CANDIDO is the preferred PK/PD target and is associated with decreased risk of nephrotoxicity compared to traditional trough targets.
[2023-03-22 20:44] LABS: BUN Creatinine Ratio 12.8 (10-20); Calcium 7.7 mg/dl (8.6-10.3); Creatinine Clr Calc Pharmacy 53.8 ml/min; Est GFR (African American) 83.3 ml/min; Est GFR (Non-African American) 71.9 ml/min; Potassium 3.7 mmol/L (3.5-5.1)
[2023-03-22] MEDS ORDERED: LOSARTAN POTASSIUM 25 MG TAB PO SCH (21:00)
[2023-03-22] MEDS: VANCOMYCIN HCL 750 MG in SODIUM CHLORIDE 0.9% 250 ML IV SCH (21:26)
[2023-03-22] MEDS: DOXYCYCLINE HYCLATE 100 MG in DEXTROSE 5% 100 ML IV SCH (23:58)
[2023-03-23] MEDS: SODIUM CHLORIDE 0.9% 1000ML 1,000 ML IV SCH (04:46)
[2023-03-23 07:41] LABS: Basophils # (auto) 0.03 K/uL (0-0.2); Eosinophils # (auto) 0.13 K/uL (0-0.50); Eosinophils % (auto) 4.5 %; Hemoglobin 11.8 g/dl (12.0-16.0); Immature Granulocytes # (auto) 0.08 K/uL (0.01-0.20); Immature Granulocytes % (auto) 2.8 %; Lymphocytes # (auto) 1.34 K/uL (1.2-3.4); Lymphocytes % (auto) 46.2 %; Mean Corpuscular Hemoglobin 31.1 pg (25.0-34.0); Mean Corpuscular Hgb Conc 34.7 g/dL (32.0-36.0); Mean Corpuscular Volume 89.7 fL (80.0-100.0); Mean Platelet Volume 8.8 fL (9.4-12.4); Monocytes # (auto) 0.24 K/uL (0.11-0.59); Monocytes % (auto) 8.3 %; Neutrophils # (auto) 1.08 K/uL (1.40-6.50); Neutrophils % (auto) 37.2 %; Platelet Count 149 K/uL (130-400); RDW Coefficient of Variation 13.3 % (11.5-14.5); Red Blood Count 3.79 M/uL (4.20-5.40)
--- NOTE | 2023-03-23 08:16 | Magnetic Resonance Report ---
MR ankle RT wo con HISTORY: fevers,wound,abscess right ankle,assess for OM TECHNIQUE: Multiplanar multisequence MRI of the right ankle was performed without contrast according to standard departmental protocol. COMPARISON STUDY: Right ankle radiograph 03/09/2023. FINDINGS: There is a skin marker overlying the medial distal right lower leg/ankle. Deep to the skin marker there is skin thickening and subcutaneous edema with a 3.7 x 2.1 x 0.8 cm septated heterogeneo us collection. This subcutaneous collection is T1 hyperintense with heterogeneous T2 signal. Therefor e, this could represent a subcutaneous hematoma or abscess. A subcutaneous mass is considered less li ernie but not entirely excluded given the lack of intravenous contrast on this study. No definite albaro ical destruction identified within the distal tibia. However, there is a small patchy area of T2 hype rintense, T1 hypointense signal abnormality within the anteromedial aspect of the distal tibia which measures approximately 19 x 16 x 10 mm. This is concerning for a site of osteomyelitis. There is trac e periosteal edema medial distal tibia deep to the suspected fluid collection. No fracture or disloca tion within the right ankle.. There is diffuse subcutaneous edema noted within the right ankle. No fl uid collections within the tibiotalar joint. Cartilage spaces are maintained. No evidence for septic arthritis. The flexor, extensor, peroneal, and Achilles tendons are normal and course, caliber, and s ignal intensity. Medial and lateral stabilizing ligaments are intact. IMPRESSION: 1. There is a 3.7 x 2.1 x 0.8 cm septated heterogeneous subcutaneous collection within the medial asp ect of the ankle as described above. This could represent a subcutaneous abscess or possibly a hemato ma given the signal abnormality. A subcutaneous mass is considered less likely but not entirely exclu ded given the lack of intravenous contrast on this study. 2. No definite cortical destruction identified within the distal tibia. However, there is a small pat april area of T2 hyperintense, T1 hypointense signal abnormality within the anteromedial aspect of the distal tibia which measures approximately 19 x 16 x 10 mm. This is concerning for a site of osteomyel itis. ACT 112: Negative or not required by law. Electronically signed by: Jaiden Bonilla M.D. 03/23/2023 8:13 AM
[2023-03-23 08:25] LABS: Albumin Globulin Ratio 1.4 (0.9-2); Albumin Level 3.4 gm/dl (3.4-5.0); BUN Creatinine Ratio 16.7 (10-20); Bilirubin,Total 0.3 mg/dl (0.2-1.0); C Reactive Protein 0.78 mg/dl (0-0.5); Calcium 7.7 mg/dl (8.6-10.3); Creatinine Clr Calc Pharmacy 70.1 ml/min; Globulin 2.4 gm/dl (2.5-4.0); Potassium 3.6 mmol/L (3.5-5.1); Total Protein 5.8 gm/dl (6.0-8.3)
--- NOTE | 2023-03-23 10:04 | Infectious Disease Consult ---
Date of Consultation March 23, 2023 Assessment & Plan (1) Leukopenia: (2) Transaminitis: (3) Fever: (4) Leg abscess: Plan Micro: 03/22 Lyme screen: +IgM, -IgG. Western blot pending 03/22 Anaplasma PCR: pending 03/22 Anaplasma smear: neg 03/22 BCx x2: pending 03/17 RLE wound cx: Corynebacterium species. Abx: Vanc 03/22 - present Ceftriaxone 03/22 - present Doxycycline 03/22 - present Problems: #RLE cellulitis, abscess, osteomyelitis #Fever #Leukopenia #Elevated transaminases #Penicillin allergy: hives, swelling. Has tolerated cephalexin. 62 yo F with history of HTN, HLD, metabolic syndrome who presented to the ED on 03/22 with fevers x 1 week in the setting of RLE contusion. She sustained a contusion to her RLE on 03/06 at work when a metal door fell on her leg. Was prescribed a course of cephalexin by her PCP, continued to have swelling, spreading erythema, and purulent drainage, then was switched to TMP/SMX. She had difficulty tolerating the TMP/SMX due to N/V, so presented to the ED on 03/18 and was prescribed Zofran. She was subsequently able to take the TMP/SMX. A wound cx was obtained which grew only Corynebacterium, representing superficial contaminant. Pt was seen by PCP on 03/21 for follow-up, at which time she reported fevers/chills, nausea, and she was advised to present to ED for IV antibiotics. On presentation, pt was febrile to 38.3, WBC 3.18, platelets 167, AST 85, ALT 72, ESR 8, CRP 0.91, normal lactate, procalcitonin 0.23. In the ED, her right del cid wound was thought to be fairly benign, and with her lab abnormalities, she was thought to potentially have Lyme or anaplasmosis. Initial Lyme screen was IgM positive, IgG negative. She was given ceftriaxone and doxycycline and vancomycin. A right tib/fib XR showed no evidence for osteomyelitis. A RLE ultrasound showed a complex 3.7 cm fluid collection of the right calf suggestive of a hematoma versus abscess. An ankle MRI showed a 3.7 x 2.1 x 0.8 cm septated heterogeneous subcutaneous collection within the medial aspect of the ankle, could represent a subcutaneous abscess or possibly a h ematoma, less likely a subcutaneous mass but not entirely excluded. No definite cortical destruction was identified within the distal tibia, however there is a small patchy area of T2 hyperintense, T1 hypointense signal abnormality within the anteromedial aspect of the distal tibia which measures approximately 19 x 16 x 10 mm, concerning for site of osteomyelitis. A liver ultrasound showed hepat ic steatosis, normal gallbladder. Orthopedic surgery was consulted, did not think pt needs debridement, and did not think they would be able to obtain fluid from the small subcutaneous collection. Ortho is not concerned for osteomyelitis. Pt's RLE has improved significantly since admission. Pt continues with leukopenia, borderline thrombocytopenia. AST slightly downtrended to 76, and ALT to 64. Pt's ankle looks excellent on exam today. Last fever was last night. Perhaps fevers can be explained by a tick-borne illness (given leukopenia, borderline platelets, elevated AST and ALT), vs drug fevers from TMP/SMX. Recommendations: -On discharge, can transition to doxycycline 100 mg PO BID to complete a 10 day course through 03/31 to cover in case of tickborne illness, as well as provide MRSA coverage. Also supplement with cefuroxime 500 mg PO q12h for another 5 days to cover other causes of SSTI e.g. Strep. -Follow-up Lyme western blot, Anaplasma PCR Discussed with primary team. Will sign off Please page [facility] with further questions. Consultation Information Consultation was provided via telemedicine using two-way real-time interactive telecommunication between the patient and the telemedicine provider. For the duration of the visit, the provider was performing the assessment from a different facility than the patient. This includesuse of bluetooth stethoscope forauscultationperformed by the telepresenter that the telemedicine provider can hear if described in the physical exam. [facility] contact information: Please call [facility] [phone]. (Phone Number For Physician Use Only) After establishing a telemedicine visit, patient was: Patient was verified with two unique identifiers, Patient/authorized rep acknowledged consent and understanding and Gave permission to continue telehealth session Time Spent with Patient: Initial => 40 min History of Present Illness Reason for Consultation: C/f Ankle osteomyelitis Requesting Physician: Dr. Meagan Vásquez Attending Physician: Meagan Vásquez MD History of Present Illness 62 yo F with history of HTN, HLD, metabolic syndrome who presented to the ED on 03/22 with fevers x 1 week. She had a contusion to her RLE on 03/06 at work when a metal door fell on her leg. She was seen by her PCP on 03/09 and Tdap was administered. She was prescribed a course of cephalexin 500 mg PO QID x 7 days due to concern for cellulitis. R ankle XR was negative. She was seen again in follow-up on 03/15, at which time she continued to have swelling, now with purulent drainage and extension of erythema. Her antibiotics were switched to TMP/SMX 1 DS tab BID x 7 days. She presented to the ED on 03/18 for persistent RLE wound and vomiting of her antibiotics. She reported only being able to keep down one of the doses of TMP/SMX. She denied fevers, chills, and reported the swelling/bruising to her foot had improved, but there was still surrounding erythema. A wound culture was obtained, which grew Corynebacterium. Patient declined to be admitted. She tolerated a dose of TMP/SMX in the ED, and was given Zofran for home. She was then seen in follow-up by her PCP on 03/21, at which time she reported ongoing fever/chills and nausea. She felt the erythema had slightly improved. Her PCP advised her to present to the ED for IV antibiotics. She presented to the ED on 03/22, at which time she was febrile to 38.3. Labs showed WBC 3.18, platelets 167, AST 85, ALT 72, ESR 8, CRP 0.91, normal lactate, procalcitonin 0.23. In the ED, her right del cid wound was thought to be fairly benign, and with her lab abnormalities, she was thought to potentially have Lyme or anaplasmosis. Initial Lyme screen was IgM positive, IgG negative. She was given ceftriaxone and doxycycline and vancomycin. A right tib/fib XR showed no evidence for osteomyelitis. A RLE ultrasound showed a complex 3.7 cm fluid collection of the right calf suggestive of a hematoma versus abscess. MRI cervical spine was performed due to report of neck pain, which showed no evidence for discitis/osteomyelitis. An ankle MRI showed a 3.7 x 2.1 x 0.8 cm septated heterogeneous subcutaneous collection within the medial aspect of the ankle, could represent a subcutaneous abscess or possibly a hematoma, less likely a subcutaneous mass but not entirely excluded. No definite cortical destruction was identified within the distal tibia, however there is a small patchy area of T2 hyperintense, T1 hypointense signal abnormality within the anteromedial aspect of the distal tibia which measures approximately 19 x 16 x 10 mm, concerning for site of osteomyelitis. A liver ultrasound showed hepatic steatosis, normal gallbladder. Orthopedic surgery was to evaluate for drainage of the leg abscess. On my evaluation, the pt reports that her RLE has improved significantly since late last week. Her leg today does not look significantly different from when she was admitted. Ortho does not think pt needs debridement, and does not think they will be able to obtain fluid from the small subcutaneous collection. They do not feel there is osteomyelitis. Pt denies known tick bites or recent erythematous rounded rash, but states she regularly mows her 1 acre lawn and could be exposed to ticks then. Allergies Allergy/AdvReac Type Severity Reaction Status Date / Time Penicillins Allergy Intermediate HIVES AND Verified 03/22/23 14:52 SWELLING bupropion [From Zyban] AdvReac Severe MUSCULAR Verified 03/22/23 14:52 - SEE NOTES Home Medications Medication Instructions Recorded Confirmed Type apple cider vinegar 600 mg capsule 600 mg PO DAILY 08/19/21 03/22/23 History cyclosporine 0.05 % eye drops 1 drp ophthalmic (eye) BID 08/19/21 03/22/23 History (Restasis MultiDose) flaxseed oil 1,000 mg capsule 1,000 mg PO DAILY 08/19/21 03/22/23 History lactobacillus combination no.4 3 3,000 mmu cells PO DAILY 08/19/21 03/22/23 History billion cell capsule (Probiotic) ascorbic acid (vitamin C) 500 mg 500 mg PO DAILY 09/04/21 03/22/23 History tablet (Vitamin C) cholecalciferol (vitamin D3) 10 10 mcg PO DAILY 09/04/21 03/22/23 History mcg (400 unit) capsule (Vitamin D3) cyanocobalamin (vitamin B-12) 1,000 mcg PO DAILY ##0 09/04/21 03/22/23 History 1,000 mcg tablet (Vitamin B-12) lorazepam 0.5 mg tablet (Ativan) 0.5 mg PO DAILY PRN anxiety, 03/01/23 03/22/23 Rx trouble sleeping #14 tabs ibuprofen 200 mg tablet 600 mg PO DIRECTED PRN Pain 03/17/23 03/22/23 History losartan 25 mg tablet (Cozaar) 25 mg PO HS 03/17/23 03/22/23 History ondansetron HCl 4 mg tablet 4 mg PO Q8H PRN nausea and 03/18/23 03/22/23 Rx vomiting #20 tabs Patient History Medical History Borderline diabetes Borderline high blood pressure Chronic UTI History of anesthesia reaction MOTHER WITH TRIPLE [place]ASS SURGERY TOOK A DAY AND A HALF TO GET HER AWAKE History of kidney infection X3 IN THE PAST YR - MOST RECENT - FEBRUARY OR MAR 2021 Hyperlipidemia Hypertension Weight gain 20 POUNDS OVER LAST 3 YRS Surgical History History of cataract extraction BOTH History of dilation and curettage History of foot surgery X2 (1 RIGHT, 1 LEFT) History of hysterectomy History of wisdom tooth extraction Family History Mother Diabetes Father Diabetes Sister Diabetes Other COPD (chronic obstructive pulmonary disease) Cancer Deep vein thrombosis Heart disease Pulmonary embolism Stroke Social History Smoking Status: Current some day smoker Tobacco Type: E-cigarettes / Vaping Cigarettes Per Day: VAPE EVERY DAY - ADVISED NPO; Second Hand Exposure: No; Do You Dip or Chew Tobacco: No; Tobacco Cessation Education Requested by Patient: No Hx Alcohol Use: Yes Alcohol type: wine Hx Substance Use: No Preferred Language: Sinhala Communication Ability: Effective Oxidation Engineer Required: No Beliefs That Will Affect Care: None marital status: Current Living Situation: Alone current occupational status: employed current occupation: [employer] How many Children do You have: 0 Other Information That Helps Us Care for You: No Feels Safe at Home: Yes Safety Concerns: Feels Safe At This Time Childhood Exposure to Second-Hand Smoke: Yes Diet: regular caffeine: Yes Dental Care, Regularly: Yes Physical Activity Frequency: Daily Seatbelt Use: always Sunscreen Use: No Assistive Devices: None Review of System A complete ROS was performed and is negative except as mentioned in the HPI. Physical Exam Physical Exam: GEN: Well-appearing, in NAD. RESP: No increased work of breathing EXT: No LE edema. Warm, well-perfused. SKIN: R lower medial leg abrasion, without surrounding erythema or drainage. NEURO: Alert and oriented. Answers all questions appropriately. Speech not slurred. PSYCH: Normal mood, affect appropriate. Results & Data Vital Signs (Past 12 Hours) Vital Signs Temp Pulse Pulse Resp BP Pulse Ox Pulse Ox 03/23/23 02:45 37.1 C 73 16 89/56 L 95 03/23/23 03:06 78 03/23/23 02:58 80 03/23/23 02:57 93 03/22/23 23:18 37.8 C H 74 18 93/60 L 93 O2 Del Method O2 Del Method 03/23/23 02:45 Room Air 03/23/23 03:06 03/23/23 02:58 03/23/23 02:57 Room Air 03/22/23 23:18 Room Air Laboratory Results Short CBC 03/22/23 03/23/23 Range/Units 12:27 07:01 WBC 3.18 L 2.90 L (4.8-10.8) K/ul Hgb 13.5 11.8 L (12.0-16.0) g/dl Hct 37.7 34.0 L (37.0-47.0) % Plt Count 167 149 (130-400) K/uL BMP 03/22/23 03/22/23 03/23/23 12:27 20:07 07:01 Sodium 125 L 128 L 132 L Potassium 3.7 3.7 3.6 Chloride 95 L 100 107 Carbon Dioxide 21 20 L 19 L BUN 13 11 11 Creatinine 1.06 0.86 0.66 Glucose 93 83 72 Calcium 8.4 L 7.7 L 7.7 L Cardiac Enzymes 03/22/23 Range/Units 20:07 Total Creatine Kinase 182 (26-192) U/L Liver Function 03/22/23 03/23/23 Range/Units 12:27 07:01 Total Bilirubin 0.4 0.3 (0.2-1.0) mg/dl AST 85 H 76 H (13-39) U/L ALT 72 H 64 H (7-52) U/L Alkaline Phosphatase 68 55 (34-104) U/L Albumin 4.2 3.4 (3.4-5.0) gm/dl Urine 03/22/23 Range/Units 12:23 Urine Color Yellow Urine Appearance Clear (Clear) Urine pH 6.5 (4.5-7.5) Ur Specific [place] 1.008 (1.000-1.030) Urine Protein Negative (Negative) Urine Glucose (UA) Negative (Negative) Diagnostic Findings Tibia/Fibula X-Ray 03/22/23 12:18 XR tibia fibula RT 2V CLINICAL HISTORY: Right lower leg pain. Assess for osteomyelitis. COMPARISON STUDY: Right foot 03/15/2023. FINDINGS: No fracture or dislocation within the right tibia or fibula. Plantar and posterior calcaneal spurs are noted. No bony destruction to suggest an osteomyelitis. Mild soft tissue swelling within the mid right lower leg. IMPRESSION: No evidence for osteomyelitis within the right lower leg. ACT 112: Negative or not required by law. Electronically signed by: Jaiden Bonilla M.D. 03/22/2023 1:18 PM Vascular Ultrasound 03/22/23 12:18 US extremity non-vascular ltd HISTORY: 62 years-old Female ? abscess diffuse soft tissue swelling of the right lower leg with possible abscess COMPARISON: Tibia and fibula radiographs of same day TECHNIQUE: Multiple real-time sonographic images of the right lower extremity s oft tissues were obtained assessing grayscale appearance and color flow FINDINGS: The linear clinical concern in the right calf there is a complex wider than tall mixed echogenicity ovoid collection measuring approximately 3.7 x 0.7 x 2.6 cm with peripheral flow. Increased echogenicity of the subcutaneous tissues with subcutaneous edema. IMPRESSION: Complex 3.7 cm fluid collection of the right calf is suggestive of a hematoma versus abscess. ACT 112: Negative or not required by law. The above report was generated using voice recognition software. It may contain grammatical, syntax or spelling errors. Electronically signed by: Edvin Maradiaga M.D. 03/22/2023 3:56 PM Liver Ultrasound 03/22/23 16:13 ABDOMINAL ULTRASOUND, RIGHT UPPER QUADRANT HISTORY: elevated LFTs. COMPARISON: None. FINDINGS: Pancreas: Fatty Liver: The liver is echogenic consistent with fatty change. 14 cm in length. No hepatic masses. Gallbladder: No gallbladder wall thickening. No gallstones. CBD: 3 mm. Right kidney: No hydronephrosis. IMPRESSION: 1. Hepatic steatosis. 2. Normal gallbladder. No gallstones. ACT 112: Negative or not required by law. Electronically signed by: Jaiden Bonilla M.D. 03/22/2023 5:38 PM Ankle MRI 03/22/23 16:52 MR ankle RT wo con HISTORY: fevers,wound,abscess right ankle,assess for OM TECHNIQUE: Multiplanar multisequence MRI of the right ankle was performed without contrast according to standard departmental protocol. COMPARISON STUDY: Right ankle radiograph 03/09/2023. FINDINGS: There is a skin marker overlying the medial distal right lower leg/ankle. Deep to the skin marker there is skin thickening and subcutaneous edema with a 3.7 x 2.1 x 0.8 cm septated heterogeneous collection. This subcutaneous collection is T1 hyperintense with heterogeneous T2 signal. Therefore, this could represent a subcutaneous hematoma or abscess. A subcutaneous mass is considered less likely but not entirely excluded given the lack of intravenous contrast on this study. No definite cortical destruction identified within the distal tibia. However, there is a small patchy area of T2 hyperintense, T1 hypointense signal abnormality within the anteromedial aspect of the distal tibia which measures approximately 19 x 16 x 10 mm. This is concerning for a site of osteomyelitis. There is trace periosteal edema medial distal tibia deep to the suspected fluid collection. No fracture or dislocation within the right ankle.. There is diffuse subcutaneous edema noted within the right ankle. No fluid collections within the tibiotalar joint. Cartilage spaces are maintained. No evidence for septic arthritis. The flexor, extensor, peroneal, and Achilles tendons are normal and course, caliber, and signal intensity. Medial and lateral stabilizing ligaments are intact. IMPRESSION: 1. There is a 3.7 x 2.1 x 0.8 cm septated heterogeneous subcutaneous collection within the medial aspect of the ankle as described above. This could represent a subcutaneous abscess or possibly a hematoma given the signal abnormality. A subcutaneous mass is considered less likely but not entirely excluded given the lack of intravenous contrast on this study. 2. No definite cortical destruction identified within the distal tibia. However, there is a small patchy area of T2 hyperintense, T1 hypointense signal abnormality within the anteromedial aspect of the distal tibia which measures approximately 19 x 16 x 10 mm. This is concerning for a site of osteomyelitis. ACT 112: Negative or not required by law. Electronically signed by: Jaiden Bonilla M.D. 03/23/2023 8:13 AM Cervical Spine MRI 03/22/23 16:52 CERVICAL SPINE MRI HISTORY: neck pain,fevers,assess for discitis/osteomyelitis TECHNIQUE: Multiplanar multisequence MRI of the cervical spine was performed without the use of contrast. COMPARISON STUDY: None. FINDINGS: No fracture or subluxation within the cervical spine. Minimal disc space narrowing at C5-C6. The remaining disc spaces are preserved. Mild disc desiccation seen throughout the cervical spine. There is a normal signal intensity within the visualized osseous structures. No endplate erosive changes to suggest a discitis/osteomyelitis. No epidural or paraspinal masses identified. Prevertebral soft tissues and the C1-C2 interval are intact. The cervical spinal cord is normal and course, caliber, and signal intensity. The posterior fossa is unremarkable. C2-C3: No significant central canal or neural foraminal narrowing. C3-C4: No significant central canal or neural foraminal narrowing. C4-C5: No significant central canal or neural foraminal narrowing. C5-C6: No significant central canal narrowing. There is mild right-sided neural foraminal narrowing due to the uncovertebral and facet hypertrophy. No significant left-sided neural foraminal narrowing. C6-C7: Small focal central/right paracentral disc protrusion measuring 3 mm. This results in partial effacement of the anterior thecal sac without cord deformity. This appears to abut the exiting right nerve roots at this level and results in mild right-sided neural foraminal narrowing and mild central canal narrowing. There is no significant left-sided neural foraminal narrowing. C7-T1: No significant central canal or neural foraminal narrowing. IMPRESSION: 1. No evidence for discitis/osteomyelitis within the cervical spine. 2. No fracture or subluxation. 3. A small central/right paracentral focal disc protrusion at C6-C7 which results in mild central canal narrowing and appears to abut the exiting right nerve roots at this level. ACT 112: Negative or not required by law. Electronically signed by: Jaiden Bonilla M.D. 03/22/2023 7:27 PM Medications Administered Current Inpatient Medications Acetaminophen (Acetaminophen 325 Mg Tab) 650 mg PO Q4H PRN PRN Reason: Pain or Fever Stop: 04/21/23 19:53 Artificial Tears (Artificial Tears) 1 drops OP QID PRN PRN Reason: Dryness Stop: 04/21/23 20:22 Ceftriaxone Sodium 1,000 mg/ (Dextrose) 50 mls @ 100 mls/hr IV Q24H [facility]; Protocol Stop: 03/30/23 11:59 Doxycycline Hyclate 100 mg/ (Dextrose) 110 mls @ 50 mls/hr IV Q12H [facility] Stop: 04/05/23 22:59 Last Infusion: 03/23/23 02:39 Dose: Infused Sodium Chloride (Nss 1000ml) 1,000 mls @ 125 mls/hr IV .Q8H [facility] Stop: 03/23/23 11:53 Last Admin: 03/23/23 04:46 Dose: 125 mls/hr Vancomycin HCl 750 mg/ Sodium (Chloride) 265 mls @ 200 mls/hr IV Q12 [facility] Stop: 03/29/23 20:59 Last Admin: 03/23/23 10:14 Dose: 200 mls/hr Lorazepam (Lorazepam 0.5 Mg Tab) 0.5 mg PO DAILY PRN PRN Reason: anxiety, trouble sleeping Stop: 04/21/23 19:53 Miscellaneous Information (Vancomycin Consult Active) 1 each N/A UD PRN PRN Reason: Consult Stop: 04/21/23 12:23 Ondansetron HCl (Ondansetron Inj 2 Mg/Ml 2 Ml Vial) 4 mg IV Q6H PRN PRN Reason: Nausea Stop: 04/21/23 19:53
[2023-03-23] MEDS: VANCOMYCIN HCL 750 MG in SODIUM CHLORIDE 0.9% 250 ML IV SCH (10:14)
[2023-03-23] MEDS: DOXYCYCLINE HYCLATE 100 MG in DEXTROSE 5% 100 ML IV SCH (12:00)
[2023-03-23] MEDS ORDERED: cefTRIAXone SODIUM 1,000 MG in DEXTROSE 5% AD-VAN 50 ML IV SCH (12:00)
--- NOTE | 2023-03-23 12:45 | Orthopedic Consultation ---
Date of Consultation March 23, 2023 Assessment & Plan (1) Leg abscess: IMPRESSION: RLE pain secondarily to cellulitis, much improved overnight following IV antibiotics, no fluid to aspirate. Unlikely to see this much improvement with abscess or osteomyelitis. PLAN:Weightbearing as tolerated on right lower extremity Ice with easy wrap Covering for Dr. Luong today, if the patient remains in the hospital, he will take over tomorrow. Continue IV antibiotics per ID discretion with possible transition to oral antibiotics upon discharge. Continue care per primary service. If patient leaves AMA today, should follow up with Dr. Luong or Dr. Galeano in [address] Galenao spoke with primary service, Dr. Vásquez, relaying findings and plan. Present on Admission?: Yes Supervising Physician Co-Signing Physician Notes I, Dr. Galeano, saw and examined the patient and discussed the management with my PA. I reviewed my PAs note and agree with the documented findings and the plan of care I developed. History of Present Illness Reason for Consultation: Right ankle abscess/cellulitis Requesting Physician: Tito Galeano MD Attending Physician: Meagan Vásquez MD History of Present Illness This patient is a 62-year-old female with a history of HTN, hyperlipidemia, metabolic syndrome who presents with persistent fevers x1 week. She had a contusion/laceration to her right lower leg on 03/06/23 and was seen by primary care physician on 03/09 and started on Keflex for cellulitis around the wound. The cellulitis worsened and was seen by nurse practitioner and switched to Bactrim which she did not tolerate due to nausea/vomiting but continued to take along with oral Zofran. She came to the ER on 03/18 and was recommended to be admitted for IV antibiotics but she decided to go home and continued on the Bactrim. She reports ongoing fevers/chills and nausea with fevers of 102-104 for the last week. She continued to have pain at the site of the wound and swelling and the redness that had slightly improved.She states that after having the IV ABX her symptoms have improved considerably. Allergies Allergy/AdvReac Type Severity Reaction Status Date / Time Penicillins Allergy Intermediate HIVES AND Verified 03/22/23 14:52 SWELLING bupropion [From Zyban] AdvReac Severe MUSCULAR Verified 03/22/23 14:52 - SEE NOTES Home Medications Medication Instructions Recorded Confirmed Type apple cider vinegar 600 mg capsule 600 mg PO DAILY 08/19/21 03/22/23 History cyclosporine 0.05 % eye drops 1 drp ophthalmic (eye) BID 08/19/21 03/22/23 History (Restasis MultiDose) flaxseed oil 1,000 mg capsule 1,000 mg PO DAILY 08/19/21 03/22/23 History lactobacillus combination no.4 3 3,000 mmu cells PO DAILY 08/19/21 03/22/23 History billion cell capsule (Probiotic) ascorbic acid (vitamin C) 500 mg 500 mg PO DAILY 09/04/21 03/22/23 History tablet (Vitamin C) cholecalciferol (vitamin D3) 10 10 mcg PO DAILY 09/04/21 03/22/23 History mcg (400 unit) capsule (Vitamin D3) cyanocobalamin (vitamin B-12) 1,000 mcg PO DAILY ##0 09/04/21 03/22/23 History 1,000 mcg tablet (Vitamin B-12) lorazepam 0.5 mg tablet (Ativan) 0.5 mg PO DAILY PRN anxiety, 03/01/23 03/22/23 Rx trouble sleeping #14 tabs ibuprofen 200 mg tablet 600 mg PO DIRECTED PRN Pain 03/17/23 03/22/23 History losartan 25 mg tablet (Cozaar) 25 mg PO HS 03/17/23 03/22/23 History cefuroxime axetil 500 mg tablet 500 mg PO BID #10 tabs 03/23/23 Rx doxycycline hyclate 100 mg tablet 100 mg PO BID #18 tabs 03/23/23 Rx Patient History Medical History Borderline diabetes Borderline high blood pressure Chronic UTI History of anesthesia reaction MOTHER WITH TRIPLE BYASS SURGERY TOOK A DAY AND A HALF TO GET HER AWAKE History of kidney infection X3 IN THE PAST YR - MOST RECENT - FEBRUARY OR MAR 2021 Hyperlipidemia Hypertension Weight gain 20 POUNDS OVER LAST 3 YRS Surgical History History of cataract extraction BOTH History of dilation and curettage History of foot surgery X2 (1 RIGHT, 1 LEFT) History of hysterectomy History of wisdom tooth extraction Family History Mother Diabetes Father Diabetes Sister Diabetes Other COPD (chronic obstructive pulmonary disease) Cancer Deep vein thrombosis Heart disease Pulmonary embolism Stroke Social History Smoking Status: Current some day smoker Tobacco Type: E-cigarettes / Vaping Cigarettes Per Day: VAPE EVERY DAY - ADVISED NPO; Second Hand Exposure: No; Do You Dip or Chew Tobacco: No; Hx Alcohol Use: Yes Alcohol type: wine Hx Substance Use: No Preferred Language: Danish Communication Ability: Effective Manager Costing Required: No Beliefs That Will Affect Care: None marital status: Current Living Situation: Alone current occupational status: employed current occupation: [employer] How many Children do You have: 0 Feels Safe at Home: Yes Childhood Exposure to Second-Hand Smoke: Yes Diet: regular caffeine: Yes Dental Care, Regularly: Yes Physical Activity Frequency: Daily Seatbelt Use: always Sunscreen Use: No Assistive Devices: None Review of Systems Review of Systems: All systems reviewed & are unremarkable except as noted in Subjective Physical Exam Physical Exam: Right ankle: Patient has a tiny scabbed over lesion to the medial aspect of her lower leg just proximal to the medial malleolus. There is minimal swelling edema and no erythremia. Patient states that this has decreased considerably since yesterday. She is able to perform active straight leg raise test. She is able to actively move her foot and ankle without issue. She has no tenderness over the scabbed over lesion. No fluctuance or fluid collection appreciated. No tenderness to palpation about the medial mal or distal tibia. She is able to detect light sensation to touch over the pads of her digits. Peripheral pulses are 2+. Capillary fill is less than 2 seconds. Patient is neurovascular intact in right lower extremity. Results & Data Vital Signs (Past 12 Hours) Vital Signs Temp Pulse Pulse Resp BP Pulse Ox Pulse Ox 03/23/23 11:22 37.0 C 70 18 101/64 95 03/23/23 02:45 37.1 C 73 16 89/56 L 95 03/23/23 03:06 78 03/23/23 02:58 80 03/23/23 02:57 93 O2 Del Method O2 Del Method 03/23/23 11:22 Room Air 03/23/23 02:45 Room Air 03/23/23 03:06 03/23/23 02:58 03/23/23 02:57 Room Air Diagnostic Findings Laboratory Results WBC 2.90 K/ul (4.8-10.8) L 03/23/23 07:01 RBC 3.79 M/uL (4.20-5.40) L 03/23/23 07:01 Hgb 11.8 g/dl (12.0-16.0) L 03/23/23 07:01 Hct 34.0 % (37.0-47.0) L 03/23/23 07:01 MCV 89.7 fL (80.0-100.0) 03/23/23 07:01 MCH 31.1 pg (25.0-34.0) 03/23/23 07:01 MCHC 34.7 g/dL (32.0-36.0) 03/23/23 07:01 RDW Std Deviation 44.0 fL (36.4-46.3) 03/23/23 07:01 RDW Coeff of Kristyn 13.3 % (11.5-14.5) 03/23/23 07:01 Plt Count 149 K/uL (130-400) 03/23/23 07:01 MPV 8.8 fL (9.4-12.4) L 03/23/23 07:01 Immature Gran % (Auto) 2.8 % 03/23/23 07:01 Neut % (Auto) 37.2 % 03/23/23 07:01 Lymph % (Auto) 46.2 % 03/23/23 07:01 [place] % (Auto) 8.3 % 03/23/23 07:01 Eos % (Auto) 4.5 % 03/23/23 07:01 Baso % (Auto) 1.0 % 03/23/23 07:01 Neut # (Auto) 1.08 K/uL (1.40-6.50) L 03/23/23 07:01 Lymph # (Auto) 1.34 K/uL (1.2-3.4) 03/23/23 07:01 [place] # (Auto) 0.24 K/uL (0.11-0.59) 03/23/23 07:01 Eos # (Auto) 0.13 K/uL (0-0.50) 03/23/23 07:01 Baso # (Auto) 0.03 K/uL (0-0.2) 03/23/23 07:01 Immature Gran # (Auto) 0.08 K/uL (0.01-0.20) 03/23/23 07:01 Echinocytes 1+ 03/22/23 12:27 ESR 6 mm/hr (0-30) 03/23/23 07:01 PT 11.8 Seconds (9.0-12.0) 03/22/23 12:27 INR 1.1 (0.9-1.1) 03/22/23 12: APTT 33.9 Seconds (21.0-31.0) H 03/22/23 12: PTT Ratio 1.2 03/22/23 12:27 Sodium 132 mmol/L (136-145) L 03/23/23 07:01 Potassium 3.6 mmol/L (3.5-5.1) 03/23/23 07:01 Chloride 107 mmol/L (98-107) 03/23/23 07:01 Carbon Dioxide 19 mmol/L (21-32) L 03/23/23 07:01 Anion Gap 6 (3-11) 03/23/23 07:01 BUN 11 mg/dl (6-23) 03/23/23 07:01 Creatinine 0.66 mg/dl (0.6-1.2) 03/23/23 07:01 Est Cr Clr Drug Dosing 70.1 ml/min 03/23/23 07:01 Est GFR ( Amer) 109.0 ml/min 03/23/23 07:01 Est GFR (Non-Af Amer) 94.0 ml/min 03/23/23 07:01 BUN/Creatinine Ratio 16.7 (10-20) 03/23/23 07:01 Glucose 72 mg/dl (70-99(Fasting)) 03/23/23 07:01 Lactate 0.8 mmol/L (0.4-2.0) 03/22/23 12:27 Calcium 7.7 mg/dl (8.6-10.3) L 03/23/23 07:01 Magnesium 2.0 mg/dl (1.7-2.4) 03/22/23 12: Total Bilirubin 0.3 mg/dl (0.2-1.0) 03/23/23 07:01 AST 76 U/L (13-39) H 03/23/23 07:01 ALT 64 U/L (7-52) H 03/23/23 07:01 Alkaline Phosphatase 55 U/L (34-104) 03/23/23 07:01 Total Creatine Kinase 182 U/L (26-192) 03/22/23 20:07 Troponin I High Sens 3.7 pg/ml (0-14) 03/22/23 12:27 C-Reactive Protein 0.78 mg/dl (0-0.5) H 03/23/23 07:01 Total Protein 5.8 gm/dl (6.0-8.3) L 03/23/23 07:01 Albumin 3.4 gm/dl (3.4-5.0) 03/23/23 07:01 Globulin 2.4 gm/dl (2.5-4.0) L 03/23/23 07:01 Albumin/Globulin Ratio 1.4 (0.9-2) 03/23/23 07:01 Procalcitonin 0.23 ng/ml (0-0.5) 03/22/23 12:27 Urine Color Yellow 03/22/23 12: Urine Appearance Clear (Clear) 03/22/23 12: Urine pH 6.5 (4.5-7.5) 03/22/23 12: Ur Specific [place] 1.008 (1.000-1.030) 03/22/23 12: Urine Protein Negative (Negative) 03/22/23 12: Urine Glucose (UA) Negative (Negative) 03/22/23 12: Urine Ketones Negative (Negative) 03/22/23 12: Urine Blood Negative (Negative) 03/22/23 12: Urine Nitrite Negative (Negative) 03/22/23 12: Urine Bilirubin Negative (Negative) 03/22/23 12: Urine Urobilinogen Negative (Negative) 03/22/23 12: Ur Leukocyte Esterase Negative (Negative) 03/22/23 12:23 Anaplasma Smear See Comment 03/22/23 12:27 Lyme Disease IgG Ab Negative (Negative) 03/22/23 12: Lyme Disease IgM Ab Positive (Negative) A 03/22/23 12:27 Impressions Tibia/Fibula X-Ray 03/22/23 12:18 XR tibia fibula RT 2V CLINICAL HISTORY: Right lower leg pain. Assess for osteomyelitis. COMPARISON STUDY: Right foot 03/15/2023. FINDINGS: No fracture or dislocation within the right tibia or fibula. Plantar and posterior calcaneal spurs are noted. No bony destruction to suggest an osteomyelitis. Mild soft tissue swelling within the mid right lower leg. IMPRESSION: No evidence for osteomyelitis within the right lower leg. ACT 112: Negative or not required by law. Electronically signed by: Jaiden Bonilla M.D. 03/22/2023 1:18 PM Vascular Ultrasound 03/22/23 12:18 US extremity non-vascular ltd HISTORY: 62 years-old Female ? abscess diffuse soft tissue swelling of the right lower leg with possible abscess COMPARISON: Tibia and fibula radiographs of same day TECHNIQUE: Multiple real-time sonographic images of the right lower extremity soft tissues were obtained assessing grayscale appearance and color flow FINDINGS: The linear clinical concern in the right calf there is a complex wider than tall mixed echogenicity ovoid collection measuring approximately 3.7 x 0.7 x 2.6 cm with peripheral flow. Increased echogenicity of the subcutaneous tissues with subcutaneous edema. IMPRESSION: Complex 3.7 cm fluid collection of the right calf is suggestive of a hematoma versus abscess. ACT 112: Negative or not required by law. The above report was generated using voice recognition software. It may contain grammatical, syntax or spelling errors. Electronically signed by: Edvin Maradiaga M.D. 03/22/2023 3:56 PM Liver Ultrasound 03/22/23 16:13 ABDOMINAL ULTRASOUND, RIGHT UPPER QUADRANT HISTORY: elevated LFTs. COMPARISON: None. FINDINGS: Pancreas: Fatty Liver: The liver is echogenic consistent with fatty change. 14 cm in length. No hepatic masses. Gallbladder: No gallbladder wall thickening. No gallstones. CBD: 3 mm. Right kidney: No hydronephrosis. IMPRESSION: 1. Hepatic steatosis. 2. Normal gallbladder. No gallstones. ACT 112: Negative or not required by law. Electronically signed by: Jaiden Bonilla M.D. 03/22/2023 5:38 PM Ankle MRI 03/22/23 16:52 MR ankle RT wo con HISTORY: fevers,wound,abscess right ankle,assess for OM TECHNIQUE: Multiplanar multisequence MRI of the right ankle was performed without contrast according to standard departmental protocol. COMPARISON STUDY: Right ankle radiograph 03/09/2023. FINDINGS: There is a skin marker overlying the medial distal right lower leg/ankle. Deep to the skin marker there is skin thickening and subcutaneous edema with a 3.7 x 2.1 x 0.8 cm septated heterogeneous collection. This subcutaneous collection is T1 hyperintense with heterogeneous T2 signal. Therefore, this could represent a subcutaneous hematoma or abscess. A subcutaneous mass is considered less likely but not entirely excluded given the lack of intravenous contrast on this study. No definite cortical destruction identified within the distal tibia. However, there is a small patchy area of T2 hyperintense, T1 hypointense signal abnormality within the anteromedial aspect of the distal tibia which measures approximately 19 x 16 x 10 mm. This is concerning for a site of osteomyelitis. There is trace periosteal edema medial distal tibia deep to the suspected fluid collection. No fracture or dislocation within the right ankle.. There is diffuse subcutaneous edema noted within the right ankle. No fluid collections within the tibiotalar joint. Cartilage spaces are maintained. No evidence for septic arthritis. The flexor, extensor, peroneal, and Achilles tendons are normal and course, caliber, and signal intensity. Medial and lateral stabilizing ligaments are intact. IMPRESSION: 1. There is a 3.7 x 2.1 x 0.8 cm septated heterogeneous subcutaneous collection within the medial aspect of the ankle as described above. This could represent a subcutaneous abscess or possibly a hematoma given the signal abnormality. A subcutaneous mass is considered less likely but not entirely excluded given the lack of intravenous contrast on this study. 2. No definite cortical destruction identified within the distal tibia. However, there is a small patchy area of T2 hyperintense, T1 hypointense signal abnormality within the anteromedial aspect of the distal tibia which measures approximately 19 x 16 x 10 mm. This is concerning for a site of osteomyelitis. ACT 112: Negative or not required by law. Electronically signed by: Jaiden Bonilla M.D. 03/23/2023 8:13 AM Cervical Spine MRI 03/22/23 16:52 CERVICAL SPINE MRI HISTORY: neck pain,fevers,assess for discitis/osteomyelitis TECHNIQUE: Multiplanar multisequence MRI of the cervical spine was performed without the use of contrast. COMPARISON STUDY: None. FINDINGS: No fracture or subluxation within the cervical spine. Minimal disc space narrowing at C5-C6. The remaining disc spaces are preserved. Mild disc desiccation seen throughout the cervical spine. There is a normal signal intensity within the visualized osseous structures. No endplate erosive changes to suggest a discitis/osteomyelitis. No epidural or paraspinal masses identified. Prevertebral soft tissues and the C1-C2 interval are intact. The cervical spinal cord is normal and course, caliber, and signal intensity. The posterior fossa is unremarkable. C2-C3: No significant central canal or neural foraminal narrowing. C3-C4: No significant central canal or neural foraminal narrowing. C4-C5: No significant central canal or neural foraminal narrowing. C5-C6: No significant central canal narrowing. There is mild right-sided neural foraminal narrowing due to the uncovertebral and facet hypertrophy. No significant left-sided neural foraminal narrowing. C6-C7: Small focal central/right paracentral disc protrusion measuring 3 mm. This results in partial effacement of the anterior thecal sac without cord deformity. This appears to abut the exiting right nerve roots at this level and results in mild right-sided neural foraminal narrowing and mild central canal narrowing. There is no significant left-sided neural foraminal narrowing. C7-T1: No significant central canal or neural foraminal narrowing. IMPRESSION: 1. No evidence for discitis/osteomyelitis within the cervical spine. 2. No fracture or subluxation. 3. A small central/right paracentral focal disc protrusion at C6-C7 which results in mild central canal narrowing and appears to abut the exiting right nerve roots at this level. ACT 112: Negative or not required by law. Electronically signed by: Jaiden Bonilla M.D. 03/22/2023 7:27 PM
--- NOTE | 2023-03-23 14:17 | Discharge Summary ---
Discharge Summary Date of Service March 23, 2023 Notes For Next Care Provider Needs follow up on final blood cultures and repeat LFTs and CBC as outpt in 1 week Medication Changes From Visit Doxycycline 100mg po bid x 9 more days Cefuroxime 500mg po bid x 5 more days Admission HPI Per Admitting Provider This patient is a 62-year-old female with a history of HTN, hyperlipidemia, metabolic syndrome who presents with persistent fevers x1 week. She had a contusion to her right leg on 03/06 and was seen by primary care physician on 03/09 and started on Keflex for cellulitis around the wound. The cellulitis worsened and was seen by nurse practitioner and switched to Bactrim which she did not tolerate due to nausea/vomiting but continued to take along with oral Zofran. She came to the ER on 03/18 and was recommended to be admitted for IV antibiotics but she decided to go home and continued on the Bactrim. She reports ongoing fevers/chills and nausea with fevers of 102-104 for the last week. She continues to have pain at the site of the wound and swelling and the redness has slightly improved. She also complains of bilateral neck pain and a sensation that her eyes are bulging out of her head for the last week since being on Bactrim. Her PCP recommended she come to the ER again yesterday for concerns for possible underlying osteomyelitis. A culture from 03/17 only shows corynebacterium. In the ER,She was febrile and tachycardic. She was found to have a mild leukopenia with lymphopenia, hyponatremia with a sodium of 125 down from 132 at previous ER visit, a normal lactate, and elevated AST and ALT at 85 and 72 which is up from previous. Her platelets were within normal limits but were lower than previous at 167. A procalcitonin was normal. UA was normal. Anaplasmosis peripheral smear was negative. She was given a dose of IV ceftriaxone, IV doxycycline, and IV vancomycin. Blood cultures were drawn prior to that. She does have a complex 3.7 cm fluid collection of the right leg suggestive of a hematoma versus abscess seen on ultrasound. X-ray of the right tibia/fibula was negative for evidence of osteomyelitis. Principal Dx & Hospital Course #1 = Principal Diagnosis (1) Sepsis: With fevers x1 week, tachycardia, leukopenia, and possible source being abscess in the right ankle vs Lyme or Anaplasmosis given elevated LFTs, leukopenia, and +Lyme IgM (which also sometimes occurs in Anaplasmosis) Question if has become bacteremic and with seeding to the neck/discitis/OM given 1 week of neck pain as well? Could also have OM of the ankle Failed outpatient treatment with Keflex as well as Bactrim Also with elevated transaminases which could be from infection or side effect of antibiotics, but could also be associated with anaplasmosis MRI C-spine negative MRI right ankle with possible OM distal tibia and 3 x 2 cm fluid collection however Ortho thought too small to aspirate or drain and Ortho did not think MRI consistent with OM. ESR and CRP also quite low which argues against OM Discussed with ID--> since no true OM, plan to dc home with po doxy (for Lyme,Anaplasmosis empirically, and for MRSA coverage) and cefuroxime for Strep coverage No culture data to follow-previous wound cx with Corynebacterium most likely skin contaminant Blood cxs NGTD at 24 hrs and pt declined to stay in hospital to 48 hour reyes for BCxs -was admitted and treated with IV ceftriaxone, vancomycin, and doxycycline--> dc to home on po doxy,cefuroxime -Follow-up on anaplasmosis DNA PCR when available, Lyme WB, and final Blood cxs (2) Leg abscess: As noted above (3) Cellulitis: Improving Continue antibiotics (4) Elevated transaminase level: As above, could be from acute infection, sepsis, side effect of antibiotics. Could be mild rhabdomyolysis? Anaplasmosis? No abdominal pain, no obstructive pattern Checked liver ultrasound-normal Checked CK-normal Follow-up anaplasmosis DNA PCR and continue on doxycycline LFTs trending downward at time of discharge follow as outpt with PCP (5) Leukopenia: Could be consistent with tickborne illness versus sepsis Follow CBC (6) Neck pain: Checked MRI cervical spine as above to rule out discitis or osteomyelitis of the neck given persistent fevers and neck pain-negative for such No rigidity to suggest meningitis now resolved (7) Hypertension: Blood pressures are normal to low normal Continue home losartan Plan DVT prophylaxis-SCDs Disposition-dc to home Full code Discharge Exam Constitutional WD/WN, vitals as above ENMT external ear and nose normal, oropharynx normal Neck trachea midline, no thyromegaly Respiratory normal respiratory effort, lungs clear to auscultation Cardiovascular RRR, no murmur, no edema Chest (Breasts) Chest: normal inspection of chest Gastrointestinal (Abdomen) normal bowel sounds, soft, nontender, no hepatosplenomegaly Musculoskeletal Extremities: no cyanosis and no clubbing Skin no further erythema right medial ankle surrounding small scab, slight fluctuance in the area, no TTP, FROM of right ankle Neurologic moves all extremities and awake; no focal motor deficits Psychiatric A+Ox3, euthymic affect Lymphatic no lymphedema Updated Medication List Medication Instructions Recorded Confirmed Type apple cider vinegar 600 mg capsule 600 mg PO DAILY 08/19/21 03/22/23 History cyclosporine 0.05 % eye drops 1 drp ophthalmic (eye) BID 08/19/21 03/22/23 History (Restasis MultiDose) flaxseed oil 1,000 mg capsule 1,000 mg PO DAILY 08/19/21 03/22/23 History lactobacillus combination no.4 3 3,000 mmu cells PO DAILY 08/19/21 03/22/23 History billion cell capsule (Probiotic) ascorbic acid (vitamin C) 500 mg 500 mg PO DAILY 09/04/21 03/22/23 History tablet (Vitamin C) cholecalciferol (vitamin D3) 10 10 mcg PO DAILY 09/04/21 03/22/23 History mcg (400 unit) capsule (Vitamin D3) cyanocobalamin (vitamin B-12) 1,000 mcg PO DAILY ##0 09/04/21 03/22/23 History 1,000 mcg tablet (Vitamin B-12) lorazepam 0.5 mg tablet (Ativan) 0.5 mg PO DAILY PRN anxiety, 03/01/23 03/22/23 Rx trouble sleeping #14 tabs ibuprofen 200 mg tablet 600 mg PO DIRECTED PRN Pain 03/17/23 03/22/23 History losartan 25 mg tablet (Cozaar) 25 mg PO HS 03/17/23 03/22/23 History ondansetron HCl 4 mg tablet 4 mg PO Q8H PRN nausea and 03/18/23 03/22/23 Rx vomiting #20 tabs cefuroxime axetil 500 mg tablet 500 mg PO BID #10 tabs 03/23/23 Rx doxycycline hyclate 100 mg tablet 100 mg PO BID #18 tabs 03/23/23 Rx Hospital Stay Data Consultations 03/22/23 14:08 ED Decision to Admit Stat 03/22/23 18:10 Consult Orthopedic Surgery Routine 03/23/23 09:11 Consult Infectious Diseases Routine Diagnostic Imagining Performed 03/22/23 12:18 US extremity non-vascular ltd Stat 03/22/23 16:13 US liver Stat 03/22/23 16:52 MRI Ankle [MR ankle RT wo con] Stat MRI Cervical [MR cervical spine wo con] Stat Pending Results Patient Have Any Pending Studies at Discharge: Yes (Anaplasmosis PCR,Lyme Western blot,Blood cultures) Discharge Instructions Given to Patient (Per Discharging Provider) Please finish out 9 more days of doxycycline and 5 days of cefuroxime, both twice a day. You may have had fevers from your ankle infection, but they may also have been related to Lyme disease or Anaplasmosis which is also from a tick bite. The final results of the testing for those diseases was still pending but the doxycycline will also treat them. Your blood cultures also were still pending at the time of discharge. If they start growing out bacteria, there is a chance you will have to return to the hospital for IV antibiotics as we discussed. Total Time Total Time Spent Total Time Spent (In Minutes): 60 min Total Time Includes: Examination of the Patient, Discharge Planning, Medication Reconciliation and Communication With Other Providers (ID, Ortho) Coding Level of Care Code 73672 INP/OBS DISCH >30 MIN Diagnoses Sepsis A41.9 Leg abscess L02.419 Cellulitis L03.90 Elevated transaminase level R74.01 Leukopenia D72.819 Neck pain M54.2 Hypertension I10
[2023-03-23] MEDS ORDERED: VANCOMYCIN HCL 1,000 MG in SODIUM CHLORIDE 0.9% 250 ML IV SCH (21:00)
== END 2023-03-23 15:10 | disposition home or self-care (01) | DRG 872 ==
LOC: ED 11:39 → 2N 16:13